=== PATIENT | male | born 1955 | race African-American/Black ===

== ENCOUNTER 2017-10-21 18:35 | Emergency (ER) | payer OTHER ==
[2017-10-21 18:44] VITALS: BMI 21.7
[2017-10-21 18:58] LABS: BASOPHILS # (AUTO) 0.1 X10^3/uL (0.0-0.1); BASOPHILS % (AUTO) 0.4 % (0.2-1.0); HEMOGLOBIN 14.4 g/dL (13.5-18.0); LYMPHOCYTES # (AUTO) 0.6 X10^3/uL (1.3-2.9); LYMPHOCYTES % (AUTO) 3.5 % (21.0-51.0); MEAN CORPUSCULAR HEMOGLOBIN 31.3 pg (27.0-34.0); MEAN CORPUSCULAR HGB CONC 33.6 g/dL (33.0-35.0); MEAN CORPUSCULAR VOLUME 93.1 fL (80.0-100.0); MEAN PLATELET VOLUME 7.1 fL (7.4-11.0); MONOCYTES # (AUTO) 0.8 x10^3/uL (0.3-0.8); MONOCYTES % (AUTO) 4.7 % (0.0-13.0); NEUTROPHILS # (AUTO) 15.3 x10^3/uL (2.2-4.8); NEUTROPHILS % (AUTO) 91.4 % (42.0-75.0); PLATELET COUNT 270 X10^3/uL (150.0-450.0); RED BLOOD COUNT 4.62 X10^6/uL (4.7-6.0); RED CELL DISTRIBUTION WIDTH 13.3 % (11.6-16.5); WHITE BLOOD COUNT 16.7 X10^3/uL (3.6-10.0)
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
[2017-10-21] MEDS ORDERED: NIFEDIPINE CAP 10 MG ONE (19:09)
[2017-10-21] MEDS ORDERED: NIFEDIPINE CAP 10 MG PO ONE (19:09)
[2017-10-21 19:16] LABS: ALANINE AMINOTRANSFERASE 40 Units/L (12-78); ALBUMIN 4.5 g/dL (3.4-5.0); ALKALINE PHOSPHATASE 89 Units/L (46-116); ASPARTATE AMINO TRANSFERASE 63 Units/L (15-37); BLOOD ALCOHOL 72 mg/dL (0-19.9); BLOOD UREA NITROGEN 20 mg/dL (7-18); CALCIUM 9.1 mg/dL (8.5-10.1); CARBON DIOXIDE 17.8 mmol/L (21-32); CHLORIDE 101 mmol/L (98-107); CREATININE 1.42 mg/dL (0.70-1.30); SODIUM 140 mmol/L (136-145); eGFR BLACK RACES > 60 (>60); eGFR NON BLACK RACES 54 (>60)
[2017-10-21 19:17] LABS: BILIRUBIN,URINE NEGATIVE (NEGATIVE); BLOOD/HEMOGLOBIN,URINE 4+ (NEGATIVE); GLUCOSE, URINE NEGATIVE (NEGATIVE); KETONES,URINE 1+ (NEGATIVE); LEUKOCYTE ESTERASE ,URINE NEGATIVE (NEGATIVE); NITRITES,URINE NEGATIVE (NEGATIVE); PROTEIN,URINE NEGATIVE (NEGATIVE); UROBILINOGEN,URINE NORMAL (NORMAL)
[2017-10-21 19:29] LABS: BAND NEUTROPHILS % 3 % (0-10); PLATELET MORPHOLOGY COMMENT NORMAL (NORMAL)
[2017-10-21 19:31] LABS: APPEARANCE,URINE CLEAR (CLEAR); COLOR,URINE YELLOW (YELLOW)
[2017-10-21 19:32] LABS: BACTERIA,URINE NEGATIVE /HPF (NEGATIVE); RBC,URINE 0-2 /HPF (NONE SEEN); SQUAMOUS EPITHELIAL CELL,UR RARE /HPF (NEGATIVE)
[2017-10-21 19:57] LABS: SALICYLATE 3.8 mg/dL (2.8-20)
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
[2017-10-21] MEDS ORDERED: NORFLEX INJ ONE (22:19)
[2017-10-21] MEDS ORDERED: TORADOL 60 MG VIAL ONE (22:19)
[2017-10-21] MEDS ORDERED: CATAPRES TAB 0.1 MG ONE (22:20)
[2017-10-21] MEDS ORDERED: NORFLEX INJ IM ONE (22:21)
[2017-10-21] MEDS ORDERED: TORADOL 60 MG VIAL IM ONE (22:21)
[2017-10-21] MEDS ORDERED: CATAPRES TAB 0.1 MG PO ONE (22:21)
[2017-10-21 22:54] VITALS: BP 135/70
== END 2017-10-21 22:50 | disposition home or self-care (01) ==
LOC: ER 18:53
DX: S16.1XXA Strain of muscle, fascia and tendon at neck level, initial encounter (principal); S23.3XXA Sprain of ligaments of thoracic spine, initial encounter; S39.012A Strain of muscle, fascia and tendon of lower back, initial encounter; R07.89 Other chest pain; I10 Essential (primary) hypertension; Z04.1 Encounter for examination and observation following transport accident; V89.2XXA Person injured in unspecified motor-vehicle accident, traffic, initial encounter
CPT/HCPCS: 36415; 70450; 71250; 72125; 72131; 73030; 80053; 80307; 81001; 85025; 93005; 93010; 96372; 99284; G0434; G6038; G6039; G6040; J1885; J2360